=== PATIENT | female | born 1985 | race Caucasian/White ===

== ENCOUNTER 2017-12-25 22:41 | Emergency (ER) | payer MEDICAID ==
--- NOTE | 2017-12-25 23:06 | EDM.PDOC ---
ED HPI GENERAL MEDICAL PROBLEM - General Chief Complaint: Abdominal Pain Stated Complaint: R flank pain Time Seen by Provider: 12/25/17 22:48 Source of Information: Reports: Patient History Limitations: Reports: No Limitations - History of Present Illness INITIAL COMMENTS - FREE TEXT/NARRATIVE: Patient is a 32-year-old female who presents to the emergency department with right flank/low back pain. Patient states that she was walking to the store and about 1700 today and developed pain in the right lower back. Patient states she does have history of low back pain, but denies specific injury, fall , or bending over. Patient denies pain radiation, dysuria , vaginal discharge , fever, abdominal pain, nausea, vomiting, diarrhea, chest pain, or shortness of breath. Onset: Today Onset Date: 12/25/17 Duration: Hour(s): Location: Reports: Back Quality: Reports: Ache Severity: Mild Improves with: Reports: None Worsens with: Reports: None Context: Reports: Other Associated Symptoms: Reports: No Other Symptoms. Denies: Chest Pain, Fever/ Chills, Nausea/Vomiting, Shortness of Breath - Related Data Allergies Allergy/AdvReac Type Severity Reaction Status Date / Time aspirin Allergy Rash Verified 12/25/17 22:46 cat dander Allergy Difficulty Verified 12/25/17 23:30 Breathing ibuprofen [From Motrin] Allergy Rash Verified 12/25/17 22:46 ketorolac [From Toradol] Allergy Rash Verified 12/25/17 22:46 Home Meds: Home Meds . [No Known Home Meds] 12/25/17 [History] ED ROS GENERAL - Review of Systems Review Of Systems: ROS reveals no pertinent complaints other than HPI. Constitutional: Reports: No Symptoms HEENT: Reports: No Symptoms Respiratory: Reports: No Symptoms Cardiovascular: Reports: No Symptoms Endocrine: Reports: No Symptoms GI/Abdominal: Reports: No Symptoms : Reports: Flank Pain (Right) Musculoskeletal: Reports: Back Pain (Right paravertebral) Skin: Reports: No Symptoms Neurological: Reports: No Symptoms Psychiatric: Reports: No Symptoms Hematologic/Lymphatic: Reports: No Symptoms Immunologic: Reports: No Symptoms ED EXAM,LOWER BACK PAIN/INJURY - Physical Exam Exam: See Below Exam Limited By: No Limitations General Appearance: Alert, WD/WN, No Apparent Distress Throat/Mouth: Normal Inspection, Normal Oropharynx, No Airway Compromise Head: Atraumatic, Normocephalic Neck: Normal Inspection, Supple, Non-Tender Respiratory/Chest: No Respiratory Distress, Lungs Clear, Normal Breath Sounds, No Accessory Muscle Use, Chest Non-Tender Cardiovascular: Regular Rate, Rhythm, No Murmur GI/Abdominal: Normal Bowel Sounds, Soft, Non-Tender, No Organomegaly, No Distention, No Abnormal Bruit, No Mass Back Exam: CVA Tenderness (R), Paraspinal Tenderness (Right) Extremities: Normal Inspection, Normal Range of Motion, Non-Tender, No Pedal Edema Neurological: Alert, Normal Mood/Affect, Normal Dorsiflexion, No Motor/Sensory Deficits Psychiatric: Normal Affect, Normal Mood Skin Exam: Warm, Dry, Intact, Normal Color, No Rash Course - Vital Signs Last Recorded V/S: Last Vital Signs Temp 97 F 12/25/17 22:46 Pulse 100 12/25/17 22:46 Resp 18 12/25/17 22:46 BP 136/85 12/25/17 22:46 Pulse Ox 98 12/25/17 22:46 - Orders/Labs/Meds Orders: Active Orders 24 hr Category Date Time Status CBC WITH AUTO DIFF [HEME] Stat Lab 12/25/17 22:52 Ordered COMPREHENSIVE METABOLIC PN,CMP [CHEM] Stat Lab 12/25/17 22:52 Ordered HCG QUALITATIVE,URINE [URCHEM] Stat Lab 12/25/17 22:53 Ordered UA W/MICROSCOPIC [URIN] Stat Lab 12/25/17 22:52 Ordered - Re-Assessments/Exams Free Text/Narrative Re-Assessment/Exam: 12/25/17 23:46 Patient afebrile, nontoxic appearing, vital signs stable, pain controlled with 5 mg Valium. Patient will follow-up with her primary doctor. Departure - Departure Time of Disposition: 23:46 Disposition: Home, Self-Care 01 Condition: Good Clinical Impression: Low back pain Qualifiers: Chronicity: chronic Back pain laterality: right Sciatica presence: without sciatica Qualified Code(s): M54.5 - Low back pain; G89.29 - Other chronic pain - Discharge Information Instructions: Chronic Back Pain, Back Pain, Adult, [id number] Referrals: PCP,Unknown [Primary Care Provider] - Additional Instructions: Follow-up with your primary doctor in 1-2 days. Return to emergency room sooner if symptoms continue or worsen. - My Orders Last 24 Hours: My Active Orders 12/25/17 22:52 CBC WITH AUTO DIFF [HEME] Stat COMPREHENSIVE METABOLIC PN,CMP [CHEM] Stat UA W/MICROSCOPIC [URIN] Stat 12/25/17 22:53 HCG QUALITATIVE,URINE [URCHEM] Stat - Assessment/Plan Last 24 Hours: My Active Orders 12/25/17 22:52 CBC WITH AUTO DIFF [HEME] Stat COMPREHENSIVE METABOLIC PN,CMP [CHEM] Stat UA W/MICROSCOPIC [URIN] Stat 12/25/17 22:53 HCG QUALITATIVE,URINE [URCHEM] Stat Assessment:: Low Back pain Plan: Follow-up with primary doctor
[2017-12-25] MEDS ORDERED: Diazepam 5 MG Tab PO ONE (23:18)
[2017-12-25 23:42] LABS: CHLORIDE,CL 105 mmol/L (98-115); SODIUM,NA 143 mmol/L (136-145)
== END 2017-12-25 23:59 | disposition home or self-care (01) ==
LOC: KA.ED 22:41
DX: M54.5 Low back pain (principal); Z88.6 Allergy status to analgesic agent; Z91.09 Other allergy status, other than to drugs and biological substances; Z88.5 Allergy status to narcotic agent
CPT/HCPCS: 80053; 81001; 81025; 85025; 99283; A9270-GY